=== PATIENT | male | born 1950 | race Caucasian/White ===

== ENCOUNTER 2023-12-12 07:23 | Day surgery (SDC) | payer MEDICARE, BC ==
[2023-12-12] MEDS ORDERED: Propofol 200 MG/20 ML SDV ONE ×2 (07:45→08:44)
[2023-12-12] MEDS ORDERED: fentaNYL 100 MCG/2 ML SDV ONE (07:45)
[2023-12-12] MEDS: Sodium Chloride 0.9% 1,000 ML IV SCH (07:55)
[2023-12-12] MEDS ORDERED: Atropine 0.4 MG/ML SDV ONE (08:45)
== END 2023-12-12 10:10 | disposition home or self-care (01) ==
LOC: JP.SDS 07:23
PROVIDERS: ATTEND Surgery
DX: Z12.11 Encounter for screening for malignant neoplasm of colon (principal); D12.3 Benign neoplasm of transverse colon; D12.5 Benign neoplasm of sigmoid colon; K57.30 Diverticulosis of large intestine without perforation or abscess without bleeding; K63.89 Other specified diseases of intestine
CPT/HCPCS: 45380; 45385; 88305; J0461; J2704; J3010; J7030

== ENCOUNTER 2025-04-08 07:07 | Day surgery (SDC) | payer MEDICARE, BC ==
[~2025-04-08 07:07] MED LIST: Propofol 200 MG/20 ML SDV ONE; fentaNYL 50 MCG/ML SDV ONE
[2025-04-08] MEDS: Lactated Ringers 1,000 ML IV SCH (07:52)
== END 2025-04-08 11:07 | disposition home or self-care (01) ==
LOC: JP.SDS 07:07
PROVIDERS: ATTEND Surgery
DX: Z12.11 Encounter for screening for malignant neoplasm of colon (principal); K57.30 Diverticulosis of large intestine without perforation or abscess without bleeding; Z86.0100 Personal history of colon polyps, unspecified
CPT/HCPCS: 00812; G0121; J2704; J3010; J7120